=== PATIENT | female | born 1965 | race Caucasian/White ===

== ENCOUNTER 2016-08-16 09:42 | Day surgery (SDC) | payer BC, OTHER ==
[2016-08-15 11:30] VITALS: BMI 27.3
[2016-08-16 10:36] VITALS: BP 135/76; PULSE 74; TEMP 97.9
== END 2016-08-16 11:31 | disposition home or self-care (01) ==
LOC: JASU-SURG 09:42
PROVIDERS: ATTEND Obstetrics & Gynecology
PROC: 0UJH8ZZ Inspection of Vagina and Cul-de-sac, Via Natural or Artificial Opening Endoscopic (ICD-10-PCS; principal; 2016-08-16)
DX: Z53.8 Procedure and treatment not carried out for other reasons (principal)
CPT/HCPCS: 84703

== ENCOUNTER 2016-08-23 08:40 | Day surgery (SDC) | payer BC, OTHER ==
[2016-08-22 12:07] VITALS: BMI 27.3
--- NOTE | 2016-08-23 10:23 | HP ---
History & Physical Update - History History: No Change - Physical Physical: No Change - Assessment Assessment: No Change - Plan Plan: No Change (Consent signed and witnessed)
[2016-08-23] MEDS ORDERED: DEXAMETHASONE SOD PHOSPHATE 4 MG/1 ML VIAL ONE (11:14)
[2016-08-23] MEDS ORDERED: LIDOCAINE HCL/PF 2% SDV 5ML VIAL ONE (11:14)
[2016-08-23] MEDS ORDERED: KETOROLAC TROMETHAMINE 30 MG/1 ML VIAL ONE (11:14)
[2016-08-23] MEDS ORDERED: PROPOFOL 20 ML ONE (11:14)
[2016-08-23] MEDS ORDERED: ONDANSETRON 4 MG/2 ML VIAL ONE (11:14)
[2016-08-23] MEDS ORDERED: MIDAZOLAM HCL 2 MG/2 ML SINGLE DOSE VIAL ONE ×2 (11:14)
--- NOTE | 2016-08-23 12:05 | OP ---
Operative Note - Note: Operative Date: 08/23/16 Pre-Operative Diagnosis: 51 yo with Metrorrhagia, h/o Endometrial ablation 2012 Operation: Hysteroscopy, polypectomy, D&C Findings: Low uterine segment polyp, areas of overgrown endometrium, and areas of denuded , ablated endometrium Post-Operative Diagnosis: Same as Pre-op (and endometrial Polyp) Surgeon: Lori Vann Anesthesiologist/CHANGE MANAGEMENT CONSULTANT: Bernardo Collins Anesthesia: MAC Specimens Removed: 1. Polyp. 2. Endometrial curettings Estimated Blood Loss (mls): 0 Instrument used (Debridements only): Storz 5mm Hysteriscope Drains & Tubes with Location: Fluid deficit 70cc Drains, Volume Out (mls): 150 Fluid Volume Replaced (mls): 600 Operative Report Dictated: Yes
[2016-08-23] MEDS ORDERED: IBUPROFEN 600 MG TABLET (FP) PO PRN (12:06)
[2016-08-23] MEDS ORDERED: IBUPROFEN 800 MG/8 ML IJ IVPB PRN (12:06)
[2016-08-23] MEDS ORDERED: oxyCODONE HCL 5 MG TABLET PO PRN ×2 (12:06→12:16)
[2016-08-23] MEDS ORDERED: ONDANSETRON 4 MG/2 ML VIAL IVPB PRN (12:06)
[2016-08-23] MEDS ORDERED: ELECTROLYTE-148 SOLN 1,000 ML IV SCH (12:15)
[2016-08-23] MEDS ORDERED: ONDANSETRON 4 MG/2 ML VIAL IVPUSH PRN (12:16)
[2016-08-23 12:57] VITALS: TEMP 97.8
[2016-08-23] MEDS ORDERED: IBUPROFEN 600 MG TABLET (FP) PO ONE ×2 (13:34→13:39)
[2016-08-23 14:00] VITALS: BP 125/76; PULSE 73
--- NOTE | 2016-08-24 01:01 | OP ---
DATE OF OPERATION: 08/23/2016 PREOPERATIVE DIAGNOSIS: A 51-year-old with metrorrhagia, history of endometrial ablation. PROCEDURE: Hysteroscopy, polypectomy, dilation and curettage. FINDINGS: Lower uterine segment polyp, areas of overgrown endometrium, and areas of denuded, ablated endometrium. POSTOPERATIVE DIAGNOSIS: Lower uterine segment polyp, areas of overgrown endometrium, and areas of denuded, ablated endometrium, endometrial polyp. SURGEON: Lori Vann MD ANESTHESIOLOGIST: Bernardo Collins MD DESCRIPTION OF OPERATIVE PROCEDURE: After ensuring informed consent and witnessing it, patient was brought to the operating room where she was placed in dorsal lithotomy position, where mask anesthesia was administered. She subsequently was identified correctly using the name tag and a timeout was called. Perineum was prepped in a sterile fashion and bladder was emptied with the straight catheter. The Barrera' speculums were placed into the vagina and cervix was articulated with single-toothed tenaculum and dilated with subsequently increasing in size Love dilators to accommodate 5-mm hysteroscopic device. Storz hysteroscope was introduced into the uterus. Uterine lining was found to be overgrown in certain areas and denuded in certain areas and a lower uterine segment polyp was identified and subsequently removed with serrated curette. Endometrial lining was thoroughly curetted and 2 specimens were sent for pathology; 1. endometrial polyp and 2. endometrial curettings. Subsequently, hysteroscope was reintroduced into the uterus. Uterus was found to be intact and not perforated and further denuded. The instruments were all removed from the vagina. Fluid deficit was found to be 70 mL. Urine output was 150 mL. Patient received 600 mL. Estimated blood loss: Zero. Patient was placed back into the supine position and brought to the recovery room in stable condition. Ariel [id number] MTDD
--- NOTE | 2016-08-24 13:31 | PATH ---
Surgical Pathology Report Patient Name: FELIX BUITRAGO [facility]. Rec. #: [id number] /Age/Gender: 1965 (Age: 51) / F Account: [id number] Location: [facility] SURGICAL Taken: 08/23/2016 Received: 08/23/2016 Reported: 08/24/2016 Physicians: Lori Vann M.D. Specimen(s) Received A: ENDOMETRIAL POLYP B: ENDOMETRIAL CURETTINGS Clinical History Menorrhagia Final Diagnosis A. ENDOMETRIAL POLYP, POLYPECTOMY: FRAGMENTS OF ENDOMETRIAL POLYP. B. ENDOMETRIUM, CURETTAGE: FRAGMENTS OF ENDOMETRIAL POLYP. BACKGROUND FRAGMENTS OF INACTIVE ENDOMETRIUM. FRAGMENTS OF BENIGN SMOOTH MUSCLE. SCANT FRAGMENTS OF BENIGN ENDOCERVICAL TISSUE. FRAGMENTS OF BENIGN SQUAMOUS EPITHELIUM. Electronically Signed Florian Silveira M.D. Gross Description A. Received in formalin labeled "endometrial polyp" is a 0.9 x 0.7 x 0.2 cm aggregate of haile-pink soft tissue fragments admixed with mucus. The formalin is filtered and the specimen is entirely submitted in one cassette. B. Received in formalin labeled "endometrial curettings" is a 2.0 x 1.8 x 0.3 cm aggregate of haile-red soft tissue fragments admixed with mucus. The formalin is filtered and the specimen is entirely submitted in one cassette. 08/23/201608/23/2016
== END 2016-08-23 14:30 | disposition home or self-care (01) ==
LOC: JASU-SURG 08:40
PROVIDERS: ATTEND Obstetrics & Gynecology
PROC: 0UB98ZX Excision of Uterus, Via Natural or Artificial Opening Endoscopic, Diagnostic (ICD-10-PCS; principal; 2016-08-23 10:00)
PROC: 0UDB8ZZ Extraction of Endometrium, Via Natural or Artificial Opening Endoscopic (ICD-10-PCS; 2016-08-23 10:00)
DX: N92.1 Excessive and frequent menstruation with irregular cycle (principal); N84.0 Polyp of corpus uteri
CPT/HCPCS: 84703; 88305-TC; 94760